=== PATIENT | female | born 1995 | race Caucasian/White ===

== ENCOUNTER 2016-12-03 11:04 | Outpatient (CLI) | payer OTHER | END 2016-12-03 11:05 | disposition home or self-care (01) | DX: D64.9 Anemia, unspecified (principal) ==

== ENCOUNTER 2017-03-31 15:46 | Outpatient (CLI) | payer OTHER | END 2017-03-31 15:47 | disposition home or self-care (01) | LOC: LAB.R 15:46 | PROVIDERS: ATTEND Nurse Practitioner Obstetrics & Gynecology | DX: B37.3 Candidiasis of vulva and vagina (principal) | CPT/HCPCS: 81599; 87480; 87510; 87660 ==

== ENCOUNTER 2017-04-26 08:00 | Outpatient (CLI) | payer OTHER ==
[2017-04-27 22:05] LABS: TEST RESULT REPORT (())
== END 2017-04-26 08:01 | disposition home or self-care (01) ==
LOC: LAB.R 08:00
PROVIDERS: ATTEND Nurse Practitioner Obstetrics & Gynecology
DX: N76.0 Acute vaginitis (principal)
CPT/HCPCS: 81599; 87480; 87510; 87660